=== PATIENT | female | born 2000 | race Caucasian/White ===

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

== ENCOUNTER 2018-04-04 16:26 | Emergency (ER) | payer SELFPAY ==
[~2018-04-04] VITALS: Ht 160 cm; Wt 85.0 kg
[~2018-04-04 16:26] MED LIST changes: +FLEXERIL PO; +TORADOL PO
[2018-04-04 17:19] VITALS: BP 138/87
== END 2018-04-04 17:19 | disposition home or self-care (01) | DRG 923 ==
LOC: ED 16:26
DX: Z04.1 Encounter for examination and observation following transport accident (principal)

== ENCOUNTER 2018-07-10 06:45 | Emergency (ER) | payer MEDICAID ==
[~2018-07-10] VITALS: Ht 160 cm; Wt 86.0 kg
[2018-07-10 07:56] LABS: HEMATOCRIT 36.1 % (37.0-47.0); HEMOGLOBIN 11.1 g/dl (12.0-16.0); IMMATURE GRANULOCYTES 0.4 % (0.0-5.0); MEAN CELL VOLUME 76.5 fL CALC (80.0-100.0); MEAN CORPUSCULAR HGB 23.5 pG CALC (26.0-32.0); MEAN CORPUSCULAR HGB CONC 30.7 g/L CALC (32.0-36.0); NEUT# 2.71 thou/uL (2.00-7.15); RED BLOOD COUNT 4.72 mill/uL (4.20-5.60); RED CELL DISTRI WIDTH 14.8 % (11.5-15.5)
[2018-07-10 08:15] LABS: ALKALINE PHOSPHATASE 72 u/l (38-126); AMYLASE 45 u/l (30-110); ANION GAP 14 (6-22 (CALC)); BILIRUBIN, TOTAL 0.5 mg/dL (0.0-1.4); BUN 12 mg/dL (8-21); BUN/CREATININE RATIO 17 (12-20 (CALC)); CARBON DIOXIDE 22 mmol/l (22-30); CHLORIDE 108 mmol/l (95-108); CREATININE 0.7 mg/dL (0.5-1.0); GFR > 60 ML/MIN (>=60 (CALC)); GFR FOR AFR.AMER. > 60 ML/MIN (>=60 (CALC)); LIPASE 60 u/l (23-300); POTASSIUM 3.9 mmol/l (3.5-5.1); SGOT/AST 22 u/l (14-36); SODIUM 141 mmol/l (137-146); TOTAL PROTEIN 6.6 g/dL (6.3-8.2)
[2018-07-10 10:07] LABS: URINE BILIRUBIN - DIPSTICK NEGATIVE (NEGATIVE); URINE BLOOD DIPSTICK NEGATIVE (NEGATIVE); URINE COLOR YELLOW; URINE GLUCOSE - DIPSTICK NEGATIVE (NEGATIVE); URINE KETONE NEGATIVE (NEGATIVE); URINE LEUK ESTERASE TRACE (NEGATIVE); URINE NITRITE - DIPSTICK NEGATIVE (Negative); URINE PROTEIN - DIPSTICK NEGATIVE (NEG-TRACE); URINE UROBILINOGEN - DIPSTICK 0.2 E.U./dL (0.2)
[2018-07-10] MEDS ORDERED: MAGNESIUM296 ML/BTL PO (10:15)
[2018-07-10] MEDS ORDERED: MIRALAX3350 N1 PO (10:15)
[2018-07-10] MEDS ORDERED: PEPCID20 MG PO (10:15)
[2018-07-10 10:24] VITALS: BP 120/72
== END 2018-07-10 10:25 | disposition home or self-care (01) ==
LOC: ED 06:45
PROVIDERS: Family Medicine
DX: R10.11 Right upper quadrant pain (principal); K59.00 Constipation, unspecified; R11.2 Nausea with vomiting, unspecified

== ENCOUNTER 2018-08-10 06:32 | Emergency (ER) | payer OTHER ==
[~2018-08-10] VITALS: Ht 162.6 cm; Wt 88.0 kg
[~2018-08-10 06:32] MED LIST changes: +MAGNESIUM296 ML/BTL PO; +MIRALAX3350 N1 PO; +PEPCID20 MG PO
[2018-08-10 07:24] LABS: HEMATOCRIT 36.6 % (37.0-47.0); HEMOGLOBIN 11.3 g/dl (12.0-16.0); IMMATURE GRANULOCYTES 0.3 % (0.0-5.0); MEAN CELL VOLUME 76.4 fL CALC (80.0-100.0); MEAN CORPUSCULAR HGB 23.6 pG CALC (26.0-32.0); MEAN CORPUSCULAR HGB CONC 30.9 g/L CALC (32.0-36.0); NEUT# 3.54 thou/uL (2.00-7.15); RED BLOOD COUNT 4.79 mill/uL (4.20-5.60)
[2018-08-10 07:25] LABS: URINE BILIRUBIN - DIPSTICK NEGATIVE (NEGATIVE); URINE BLOOD DIPSTICK TRACE-LYSED (NEGATIVE); URINE COLOR YELLOW; URINE GLUCOSE - DIPSTICK NEGATIVE (NEGATIVE); URINE KETONE NEGATIVE (NEGATIVE); URINE LEUK ESTERASE TRACE (NEGATIVE); URINE NITRITE - DIPSTICK NEGATIVE (Negative); URINE PH 5.5 (4.5-8.0); URINE PROTEIN - DIPSTICK NEGATIVE (NEG-TRACE); URINE SPECIFIC GRAVITY >=1.030; URINE UROBILINOGEN - DIPSTICK 0.2 E.U./dL (0.2)
[2018-08-10 07:30] LABS: BARBITURATES NEGATIVE (NEGATIVE); COCAINE NEGATIVE (NEGATIVE); METHADONE NEGATIVE (NEGATIVE); OXCYCODONE NEGATIVE (NEGATIVE); TETRAHYDROCANNABIONOL NEGATIVE (NEGATIVE); TRICYLIC ANTIDEPRESSANTS NEGATIVE (NEGATIVE)
[2018-08-10 07:40] LABS: ALBUMIN 4.2 g/dL (3.2-5.0); ALKALINE PHOSPHATASE 83 u/l (38-126); ANION GAP 16 (6-22 (CALC)); BILIRUBIN, TOTAL 0.5 mg/dL (0.0-1.4); BUN 9 mg/dL (8-21); BUN/CREATININE RATIO 12 (12-20 (CALC)); CARBON DIOXIDE 24 mmol/l (22-30); CHLORIDE 105 mmol/l (95-108); CREATININE 0.7 mg/dL (0.5-1.0); GFR > 60 ML/MIN (>=60 (CALC)); GFR FOR AFR.AMER. > 60 ML/MIN (>=60 (CALC)); SGOT/AST 22 u/l (14-36); SODIUM 141 mmol/l (137-146)
[2018-08-10 07:48] LABS: MYOGLOBIN 40 ng/mL (0 - 62)
[2018-08-10 08:13] VITALS: BP 123/57
[2018-08-10] MEDS ORDERED: ANTIVERT PO (08:16)
== END 2018-08-10 08:13 | disposition home or self-care (01) ==
LOC: ED 06:32
PROVIDERS: Emergency Medicine
DX: R42 Dizziness and giddiness (principal); R55 Syncope and collapse

== ENCOUNTER 2018-12-04 21:23 | Emergency (ER) | payer OTHER ==
[~2018-12-04] VITALS: Ht 162.6 cm; Wt 82.7 kg
[2018-12-04 22:15] VITALS: BP 139/76
== END 2018-12-04 22:17 | disposition home or self-care (01) | DRG 935 ==
LOC: ED 21:23
PROC: 2W2KX4Z Dressing of Left Finger using Bandage (ICD-10-PCS; principal; 2018-12-04)
PROC: 2W2FX4Z Dressing of Left Hand using Bandage (ICD-10-PCS; 2018-12-04)
DX: T23.252A Burn of second degree of left palm, initial encounter (principal); T23.222A Burn of second degree of single left finger (nail) except thumb, initial encounter; T31.0 Burns involving less than 10% of body surface; X10.2XXA Contact with fats and cooking oils, initial encounter; Y92.89 Other specified places as the place of occurrence of the external cause; Y99.0 Civilian activity done for income or pay

== ENCOUNTER 2023-08-09 18:31 | Emergency (ER) | payer SELFPAY ==
[~2023-08-09] VITALS: Ht 162.6 cm; Wt 95.2 kg
[2023-08-09 18:39] VITALS: BP 132/81
[2023-08-09] MEDS ORDERED: FLUORESCEIN SODIUM 1 MG EA OD ONE (18:45)
[2023-08-09] MEDS ORDERED: TETRACAINE HCL 0.5 %/4 ML SOL OS ONE (18:45)
[2023-08-09 18:46] VITALS: BP 124/53
[2023-08-09] MEDS ORDERED: ERYTHROMYCIN OPTHALMIC 5 MG/GM TUBE OD ONE (18:55)
[2023-08-09 19:00] VITALS: BP 120/76
[2023-08-09 19:16] VITALS: BP 105/59
== END 2023-08-09 19:35 | disposition home or self-care (01) | DRG 125 ==
LOC: ED 18:31
DX: S05.02XA Injury of conjunctiva and corneal abrasion without foreign body, left eye, initial encounter (principal); X58.XXXA Exposure to other specified factors, initial encounter; Y99.0 Civilian activity done for income or pay